=== PATIENT | female | born 2000 | race Caucasian/White ===

== ENCOUNTER → 2020-09-10 15:25 | Outpatient (CLI) | payer BC, SELFPAY ==
[2020-09-10 16:02] LABS: Basophils # 0.1 K/mm3 (0-0.2); Basophils % 0.8 % (0.1-2.0); Eosinophils # 0.4 K/mm3 (0.0-0.4); Eosinophils % 4.6 % (0.1-12.0); Hematocrit 43.9 % (37.0-47.0); Lymphocytes # 2.1 K/mm3 (0.7-4.5); Lymphocytes % 24.2 % (10-50); Mean Corpuscular HGB Conc 34.1 g/dL (31.8-35.4); Mean Corpuscular Hemoglobin 29.9 pg (27.0-31.2); Mean Corpuscular Volume 87.7 fl (81-99); Mean Platelet Volume 9.1 fl (7.4-10.4); Monocytes # 0.5 K/mm3 (0.1-1.0); Monocytes % 5.8 % (1.7-9.3); Neutrophils # 5.6 K/mm3 (1.8-7.8); Neutrophils % 64.6 % (37.0-80.0); Platelet Count 299 K/mm3 (142-424); Red Blood Count 5.01 M/mm3 (4.20-5.40); Red Cell Distribution Width 12.9 % (11.5-17.5); White Blood Count 8.6 K/mm3 (4.8-10.8)
[2020-09-10 16:46] LABS: Alanine Aminotransferase 30 U/L (12-78); Albumin Level 4.4 g/dl (3.5-5.0); Albumin/Globulin Ratio 1.5 (1.1-1.8); Alkaline Phosphatase 78 U/L (38-126); Anion Gap 13.5 mEq/L (5-15); Aspartate Amino Transferase 33 U/L (14-36); Bilirubin,Total 0.7 mg/dl (0.2-1.3); Blood Urea Nitrogen 16 mg/dl (7-17); Calcium 9.2 mg/dl (8.4-10.2); Carbon Dioxide 25 mmol/L (22.0-30.0); Chloride 104 mmol/L (98-107); Chol/HDL Ratio 3.3 (1-3.5); Cholesterol 147 mg/dl (140-200); Estimated Glomerular Filt Rate 106 ml/min (>60); GFR (African American) 128 ML/MIN (>60); Globulin 2.9 g/dL (1.3-3.2); Glucose 82 mg/dl (74-100); HDL Cholesterol 45 mg/dl (40-60); Potassium 4.5 mmoL/L (3.5-5.1); Sodium 138 mmol/L (136-145); Total Protein,Serum 7.3 g/dl (6.3-8.2); Triglycerides 98 mg/dl (30-150); VLDL Cholesterol 20 mg/dL (0-40)
[2020-09-10 16:57] LABS: Direct LDL Cholesterol 78.83 mg/dL (100-129)
[2020-09-10 17:03] LABS: 25-OH Vitamin D, Total 26.6 ng/mL (30-100)
[2020-09-10 17:04] LABS: T4 (Thyroxine) 9.8 ug/dl (5.53-11.0)
[2020-09-14 15:19] LABS: Thyroid Peroxidase Antibodies <9 IU/mL (0-34)
[2020-09-17 06:05] LABS: Thyroid Stimulating Immunoglob <0.10 IU/L (0.00-0.55)
== END ==
PROVIDERS: Visit Provider Physician Assistant
DX: N39.0 Urinary tract infection, site not specified (principal); R53.83 Other fatigue; R63.5 Abnormal weight gain; E55.9 Vitamin D deficiency, unspecified
CPT/HCPCS: 80053; 80061; 82306; 84436; 84443; 84445; 85025; 86376; 87086

== ENCOUNTER 2020-12-30 15:53 | Emergency (ER) | payer BC, SELFPAY ==
[2020-12-30 16:40] VITALS: BP 118/71; PULSE 82; RESP 18; TEMP 37; O2SAT 99; BMI 33.6
--- NOTE | 2020-12-30 16:44 | HMH.EDUTC ---
[facility] [place] Disposition Clinical Impression: Otitis media Qualifiers: Otitis media type: unspecified Laterality: left Qualified Code(s): H66.92 - Otitis media, unspecified, left ear Disposition: Home, Self-Care Condition on Discharge: Good Instructions: Middle Ear Infection, Fluticasone Nasal [place], Amoxicillin Additional Instructions: *Monitor Temp, Over the counter Motrin or Tylenol as directed/as needed Tylenol every 4 hours and Motrin every 6 hours (as long as your family doctor has told you that you can take it) for fever or pain. and straight to ER if unable to lower temp less than 101.0 after medication given *Warm salt water gargles may help to soothe the throat *Throat Lozenges *Warm fluids like tea with honey may help to soothe the throat *Sleep elevated *Humidifier/Vaporizer *Flonase 2 sprays in each nostril daily but be aware that it may take 2-3 days before you notice improvement Follow up IMMEDIATELY for new or worsening symptoms or no Noticeable improvement over the next 48-72 hours. 911 for difficulty breathing or swallowing Prescriptions: Amoxicillin [Amoxicillin 500mg Cap] 500 mg PO TID #30 cap Transmission Status: Pending to [id number] Fluticasone Propionate [Flonase 50mcg nasal spray 16gm] 1 spr NS DAILY #1 bottle Transmission Status: Pending to [id number] Referrals: PCP,No [Primary Care Provider] - As needed Time of Disposition: 16:51 Medical Decision Making - Shaheed Inquiry Pt receiving controlled substance: No Shaheed was queried for this patient: No Vital Signs: 12/30/20 16:40 Temperature 98.6 F Temperature Source Oral Pulse Rate [Right Radial] 82 Respiratory Rate 18 Blood Pressure [Right Arm] 118/71 Blood Pressure Mean [Right Arm] 86 Blood Pressure Source [Right Arm] Automatic Cuff Blood Pressure Position [Right Arm] Sitting 02 Sat by Pulse Oximetry 99 Oxygen Delivery Method Room Air [facility] [place] HPI - General Stated complaint: Left ear pain Time Seen by Provider: 12/30/20 16:44 Mode of Arrival: Ambulatory Source of Information: Patient Limitations: No Limitations Description of Symptoms (Recalled from Triage Doc. by RN): Pt c/o L ear pain x2 days. Pt reports sounds are bothering her, reports drainage down the back of her throat. Pt reports h/a on the L side of her head. HEENT Symptoms (Recalled from RN notes): Yes (pt c/o L ear pain) Resp Symptoms (Recalled from RN notes): No Skin Symptoms (Recalled from RN notes): No MS Symptoms (Recalled from RN notes): No Functional Status (Recalled from RN notes): n/a - History of Present Illness Provider Complaint: Patient state that she has been having pressure like feeling in her left ear for about a week and for the last couple of days she has been having pain in her left ear like she has an ear infection State that she has also been having some nasal congestion and drainage in the back of her throat and some pressure in her sinuses States that she has been taking over the counter DayQuil States that it has helped a little with her scratchy throat but ear has continued to get worse - Related Data Previous Rx's Medication Instructions Recorded ciprofloxacin HCl 500 mg tablet 500 mg PO BID 5 Days #10 tab 09/10/20 ergocalciferol (vitamin D2) 1,250 1,250 mcg PO WEEKLY #4 cap 09/11/20 mcg (50,000 unit) capsule Amoxicillin [Amoxicillin 500mg 500 mg PO TID #30 cap 12/30/20 Cap] Fluticasone Propionate [Flonase 1 spr NS DAILY #1 bottle 12/30/20 50mcg nasal spray 16gm] Allergies Allergy/AdvReac Type Severity Reaction Status Date / Time No Known Allergies Allergy Verified 09/10/20 11:27 - Worker's Comp Is this a Worker's Comp case?: No [facility] History - Hepatitis A Screen Drug use history?: No High risk sexual behaviors?: No History of sexually transmitted infection?: No Currently employed?: No Childcare worker?: No Do you have indoor plumbing?: Yes Do you have electricity?: Yes Attestation state
[2020-12-30 17:03] VITALS: BP 118/71; PULSE 82; RESP 18; TEMP 37; O2SAT 99
== END 2020-12-30 17:03 | disposition home or self-care (01) ==
PROVIDERS: Emergency Provider Nurse Practitioner
DX: H66.92 Otitis media, unspecified, left ear (principal)
CPT/HCPCS: 99202; G0463

== ENCOUNTER 2021-05-01 10:16 | Emergency (ER) | payer BC, SELFPAY ==
[2021-05-01 10:35] VITALS: BP 123/88; PULSE 83; RESP 20; TEMP 36.4; O2SAT 96; BMI 32.8
--- NOTE | 2021-05-01 10:52 | HMH.EDUTC ---
[facility] [place] Clinical Impression: Otitis media Qualifiers: Otitis media type: unspecified Laterality: left Qualified Code(s): H66.92 - Otitis media, unspecified, left ear Disposition: Home, Self-Care Condition on Discharge: Good Instructions: Middle Ear Infection, Amoxicillin Additional Instructions: Take medication as prescribed Over the counter Motrin and/or Tylenol as directed on package for pain and fever Return if needed Straight to ER if any life threatening symptoms Prescriptions: Amoxicillin [Amoxicillin 500mg Cap] 500 mg PO TID #30 cap Transmission Status: Pending to [facility] #[id number] Referrals: Provider,Referral, [Primary Care Provider] - As needed Time of Disposition: 10:58 Medical Decision Making - Shaheed Inquiry Pt receiving controlled substance: No Shaheed was queried for this patient: No Vital Signs: 05/01/21 10:35 Temperature 97.6 F Temperature Source Oral Pulse Rate [Right] 83 Respiratory Rate 20 Blood Pressure [Right Arm] 123/88 Blood Pressure Mean [Right Arm] 99 02 Sat by Pulse Oximetry 96 [facility] [place] - General Stated complaint: Lt ear pain Time Seen by Provider: 05/01/21 10:52 Mode of Arrival: Ambulatory Source of Information: Patient Limitations: No Limitations Description of Symptoms (Recalled from Triage Doc. by RN): pt c/o of a L ear ache and AKERS HEENT Symptoms (Recalled from RN notes): Yes (L ear ache and AKERS) Resp Symptoms (Recalled from RN notes): No Skin Symptoms (Recalled from RN notes): No MS Symptoms (Recalled from RN notes): No Functional Status (Recalled from RN notes): na - History of Present Illness Provider Complaint: Patient states that he has been having pain in her left ear for over a week States that it has continued to get worse and makes the side of her head hurt State that today she was hurting worse so she came in to get it checked - Related Data Previous Rx's Medication Instructions Recorded ciprofloxacin HCl 500 mg tablet 500 mg PO BID 5 Days #10 tab 09/10/20 Amoxicillin [Amoxicillin 500mg 500 mg PO TID #30 cap 12/30/20 Cap] Fluticasone Propionate [Flonase 1 spr NS DAILY #1 bottle 12/30/20 50mcg nasal spray 16gm] ergocalciferol (vitamin D2) 1,250 See Rx Instructions .ROUTE 01/02/21 mcg (50,000 unit) capsule .COMPLEX #4 cap Amoxicillin [Amoxicillin 500mg 500 mg PO TID #30 cap 05/01/21 Cap] Allergies Allergy/AdvReac Type Severity Reaction Status Date / Time No Known Allergies Allergy Verified 09/10/20 11:27 - Worker's Comp Is this a Worker's Comp case?: No H History - Hepatitis A Screen Drug use history?: No High risk sexual behaviors?: No History of sexually transmitted infection?: No Currently employed?: No Childcare worker?: No Do you have indoor plumbing?: Yes Do you have electricity?: Yes Attestation statement:: This patient has been screened for Hepatitis A risk factors. I have reviewed the patient's past medical history: Yes - Social History Smoking Status: Never smoker Alcohol Intake: never Substance Use Type: denies use Occupational Status: other ROS Obtained: Yes All systems reviewed & no additional complaints, Yes Systems reviewed as appropriate & no additional complaints - Constitutional Constitutional: Reports system reviewed and no additional complaints, except as docu, Reports headache(s) - ENT Ears, Nose, Mouth, and Throat: Reports system reviewed and no additional complaints, except as docu, Reports otalgia - Cardiovascular Cardiovascular: Reports system reviewed and no additional complaints, except as docu - Respiratory Respiratory: Reports system reviewed and no additional complaints, except as docu - Gastrointestinal Gastrointestingal: Reports: system reviewed and no additional complaints, except as docu Physical Exam - General General appearance: alert, in no apparent distress - Expanded ENT Exam TM/Canal exam: Left TM: erythema, bulging - Respiratory
[2021-05-01 11:28] VITALS: BP 127/89; PULSE 84; RESP 18; TEMP 36.6
== END 2021-05-01 11:28 | disposition home or self-care (01) ==
PROVIDERS: Emergency Provider Nurse Practitioner
DX: H66.92 Otitis media, unspecified, left ear (principal)
CPT/HCPCS: 99202; G0463

== ENCOUNTER 2021-10-21 11:07 | Emergency (ER) | payer BC, SELFPAY ==
[2021-10-21 12:49] VITALS: BP 143/93; PULSE 87; RESP 16; TEMP 36.9; O2SAT 100; BMI 30.6
--- NOTE | 2021-10-21 14:05 | HMH.EDUTC ---
[facility] [place] Disposition Clinical Impression: Cellulitis of great toe, right Disposition: Home, Self-Care Condition on Discharge: Good Instructions: Cellulitis Additional Instructions: Rest the extremity, Elevate the extremity as tolerated while you are resting. Take ibuprofen for pain. I sent in a prescription to your pharmacy. Follow up with your regular doctor. Take the medications as directed. Follow up with your regular doctor. GO TO THE ER FOR ANY WORSENING SYMPTOMS Follow up with Dr. Carnes. I put in a referral but you will need to call her office to schedule an appointment. Prescriptions: Ibuprofen [Ibuprofen 600mg Tablet] 600 mg PO Q6HP PRN #30 tab PRN Reason: Mild Pain Transmission Status: [id number] Amoxicillin/Potassium Clav [Augmentin 875-125 Tablet] 1 tab PO Q12H 10 Days #20 tab Transmission Status: [id number] Mupirocin [Bactroban 2% Ointment 22gm tube] 1 applicatio TP TID 7 Days #1 gm Transmission Status: [id number] Referrals: Provider,Referral, [Primary Care Provider] - Forms: Work/School Release Time of Disposition: 14:28 Medical Decision Making - Medical Records Medical records reviewed: No: I reviewed the patient's medical records. - Shaheed Inquiry Pt receiving controlled substance: No Vital Signs: 10/21/21 12:49 10/21/21 14:35 Temperature 98.4 F 98.4 F Temperature Source Oral Pulse Rate 87 Pulse Rate [Left] 87 Respiratory Rate 16 16 Blood Pressure 143/93 H Blood Pressure [Right Arm] 143/93 H Blood Pressure Mean [Right Arm] 109 02 Sat by Pulse Oximetry 100 [facility] [place] HPI - General Stated complaint: rt ankle/big toe pain Time Seen by Provider: 10/21/21 14:05 Mode of Arrival: Ambulatory Source of Information: Patient Limitations: No Limitations Description of Symptoms (Recalled from Triage Doc. by RN): pt c/o R foot pain. pt believes it started as an ingrown toe nail. x2 wks HEENT Symptoms (Recalled from RN notes): No Resp Symptoms (Recalled from RN notes): No Skin Symptoms (Recalled from RN notes): No MS Symptoms (Recalled from RN notes): Yes Functional Status (Recalled from RN notes): wnl - History of Present Illness Provider Complaint: She states that for the past 1 week she has had pain and redness at the medial nail fold of her right foot. The redness has started to spread now and she is concerned it is infected. - Related Data Previous Rx's Medication Instructions Recorded ciprofloxacin HCl 500 mg tablet 500 mg PO BID 5 Days #10 tab 09/10/20 Amoxicillin [Amoxicillin 500mg 500 mg PO TID #30 cap 12/30/20 Cap] Fluticasone Propionate [Flonase 1 spr NS DAILY #1 bottle 12/30/20 50mcg nasal spray 16gm] ergocalciferol (vitamin D2) 1,250 See Rx Instructions .ROUTE 01/02/21 mcg (50,000 unit) capsule .COMPLEX #4 cap Amoxicillin [Amoxicillin 500mg 500 mg PO TID #30 cap 05/01/21 Cap] Amoxicillin/Potassium Clav 1 tab PO Q12H 10 Days #20 tab 10/21/21 [Augmentin 875-125 Tablet] Ibuprofen [Ibuprofen 600mg 600 mg PO Q6HP PRN #30 tab 10/21/21 Tablet] Mupirocin [Bactroban 2% Ointment 1 applicatio TP TID 7 Days #1 gm 10/21/21 22gm tube] Allergies Allergy/AdvReac Type Severity Reaction Status Date / Time No Known Allergies Allergy Verified 09/10/20 11:27 - Worker's Comp Is this a Worker's Comp case?: No [facility] History - Hepatitis A Screen Drug use history?: No High risk sexual behaviors?: No History of sexually transmitted infection?: No Currently employed?: No Childcare worker?: No Do you have indoor plumbing?: Yes Do you have electricity?: Yes Attestation statement:: This patient has been screened for Hepatitis A risk factors. I have reviewed the patient's past medical history: Yes - Social History Smoking Status: Never smoker Alcohol Intake: never Substance Use Type: denies use Occupational Status: other ROS Obtained: Yes All s
[2021-10-21 14:35] VITALS: BP 143/93; PULSE 87; RESP 16; TEMP 36.9
== END 2021-10-21 14:37 | disposition home or self-care (01) ==
PROVIDERS: Emergency Provider Nurse Practitioner Family
DX: L03.031 Cellulitis of right toe (principal)
CPT/HCPCS: 99202; G0463

== ENCOUNTER → 2022-09-29 17:11 | Outpatient (CLI) | payer OTHER, SELFPAY ==
[2022-09-29 17:41] LABS: Basophils # 0.1 K/mm3 (0-0.2); Basophils % 1.3 % (0.1-2.0); Eosinophils # 0.4 K/mm3 (0.0-0.4); Eosinophils % 4.4 % (0.1-12.0); Hematocrit 40.9 % (37.0-47.0); Hemoglobin 14.1 g/dL (12.2-16.2); Lymphocytes # 2.4 K/mm3 (0.7-4.5); Lymphocytes % 28.6 % (10-50); Mean Corpuscular HGB Conc 34.5 g/dL (31.8-35.4); Mean Corpuscular Hemoglobin 29.8 pg (27.0-31.2); Mean Corpuscular Volume 86.5 fl (81-99); Mean Platelet Volume 8.4 fl (7.4-10.4); Monocytes # 0.4 K/mm3 (0.1-1.0); Monocytes % 4.4 % (1.7-9.3); Neutrophils # 5.2 K/mm3 (1.8-7.8); Neutrophils % 61.3 % (37.0-80.0); Platelet Count 312 K/mm3 (142-424); Red Blood Count 4.73 M/mm3 (4.20-5.40); Red Cell Distribution Width 12.9 % (11.5-17.5); White Blood Count 8.5 K/mm3 (4.8-10.8)
[2022-09-29 18:04] LABS: Chloride 103 mmol/L (98-107); Sodium 138 mmol/L (136-145)
[2022-09-29 18:05] LABS: Potassium 3.7 mmoL/L (3.5-5.1)
[2022-09-29 18:07] LABS: Alanine Aminotransferase 27 U/L (12-78); Alkaline Phosphatase 76 U/L (38-126); Aspartate Amino Transferase 32 U/L (14-36); Bilirubin,Total 0.6 mg/dl (0.2-1.3); Blood Urea Nitrogen 11 mg/dl (7-17); Estimated Glomerular Filt Rate 153 ml/min (>60); GFR (African American) 185 ML/MIN (>60)
[2022-09-29 18:08] LABS: Albumin Level 4.4 g/dl (3.5-5.0); Albumin/Globulin Ratio 1.5 (1.1-1.8); Anion Gap 10.7 mEq/L (5-15); Calcium 8.6 mg/dl (8.4-10.2); Carbon Dioxide 28 mmol/L (22.0-30.0); Globulin 2.9 g/dL (1.3-3.2); Glucose 91 mg/dl (74-100); Total Protein,Serum 7.3 g/dl (6.3-8.2)
[2022-09-29 18:25] LABS: T4 (Thyroxine) 8.8 ug/dl (5.53-11.0)
[2022-09-29 18:38] LABS: Thyroid Stimulating Hormone 3.04 uIU/mL (0.465-4.68)
== END ==
PROVIDERS: PCP Nurse Practitioner Family; Visit Provider Nurse Practitioner Family
DX: E55.9 Vitamin D deficiency, unspecified (principal); R53.83 Other fatigue; F41.9 Anxiety disorder, unspecified
CPT/HCPCS: 36415; 80053; 82306; 84436; 84443; 85025

== ENCOUNTER 2023-09-19 08:34 | Emergency (ER) | payer SELFPAY ==
[2023-09-19 08:50] VITALS: BP 115/73; PULSE 90; RESP 18; TEMP 36.7; O2SAT 96; BMI 33.6
[2023-09-19 09:06] LABS: UTC Influenza A Antigen Negative (Negative); UTC Influenza B Antigen Negative (Negative); UTC Strep Screen (Rapid) Negative (Negative)
--- NOTE | 2023-09-19 09:22 | EXP.UTC ---
Discharge Plan Disposition Patient Disposition: Home, Self-Care Condition: Good Prescriptions Prescriptions: New ondansetron 4 mg tablet,disintegrating 4 mg PO Q8H PRN (Reason: nausea and vomiting) Qty: 10 0RF meclizine 12.5 mg tablet 12.5 mg PO TID PRN (Reason: dizziness) Qty: 12 0RF No Action bupropion HCl 100 mg tablet sustained-release 12 hr See Rx Instructions .ROUTE .COMPLEX 90 Days Qty: 60 0RF Dose Instruction: TAKE 1 TABLET BY MOUTH TWICE A DAY Rx Instructions: TAKE 1 TABLET BY MOUTH TWICE A DAY Needs appt. for additional refills Referrals Follow up/Referrals: Provider,Referral, MD [Primary Care Provider] - See instructions Activity Restrictions/Add. Instructions Additional Instructions/Restrictions: *Monitor Temp, Over the counter Motrin or Tylenol as directed/as needed Tylenol every 4 hours and Motrin every 6 hours (as long as your family doctor has told you that you can take it) for fever or pain. and straight to ER if unable to lower temp less than 101.0 after medication given *Warm salt water gargles may help to soothe the throat *Throat Lozenges? *Warm fluids like tea with honey may help to soothe the throat? *Sleep elevated *Humidifier/Vaporizer *Your throat swab was sent for culture. Those results are typically sent to your primary care. Be sure to follow up in 2-3 days with your family doctor/primary care physician if no improvement so they can review those result and treat if necessary. If you don?t have a primary care doctor, I recommend you get one but in the mean time, you will have to return to a walk in clinic Follow up IMMEDIATELY for new or worsening symptoms or no Noticeable improvement over the next 48-72 hours. 911 for difficulty breathing or swallowing You were tested for today for Upper Respiratory Panel with COVID19 your test result should be back in the next 24hours, you may check your results on the [facility] Portal If your COVID test is positive you must Quarantine for 5 days Clinical Impressions Clinical Impression: Viral syndrome Stand Alone Forms Stand Alone Forms: Work/School Release Instructions Patient Instructions: DI for Nausea -- Adult, Ondansetron, Meclizine Discharge ED Provider: Yolis Grace [facility] [place] HPI General Stated complaint: cough, drainage,headache, nauseous Mode of Arrival: Ambulatory Source of Information: Patient Limitations: No Limitations Time Seen by Provider: 09/19/23 09:22 Description of Symptoms (Recalled from Triage Doc. by RN): cough, nausea, vomiting, AKERS, and dizziness HEENT Symptoms (Recalled from RN notes): Yes Resp Symptoms (Recalled from RN notes): No Skin Symptoms (Recalled from RN notes): No MS Symptoms (Recalled from RN notes): No Functional Status (Recalled from RN notes): n/a History of Present Illness Provider Complaint: Patient states that she was recent at [place] that since he got back she has been having bodyaches, chills, headache, N/V and dizziness on and off States that today she was still not feeling any better so she came in worried that she may have flu or COVID Related Data Previous Rx's Medication Instructions Recorded bupropion HCl 100 mg tablet,12 hr See Rx Instructions .Route 08/30/23 sustained-release .COMPLEX 90 days #60 ea meclizine 12.5 mg tablet 12.5 mg PO TID PRN dizziness #12 09/19/23 tabs ondansetron 4 mg disintegrating 4 mg PO Q8H PRN nausea and 09/19/23 tablet vomiting #10 tabs Allergies Allergy/AdvReac Type Severity Reaction Status Date / Time No Known Allergies Allergy Verified 09/19/23 08:58 Worker's Comp Is this a Worker's Comp case?: No [facility] Disclaimer: The information contained in this section may have been updated after the patient was seen, as this information can be updated by other users. Social History Smoking Status: Never smoker alcohol intake: never substance use type: denies u
[2023-09-19 09:43] LABS: UTC Pregnancy Test, Urine Negative (Negative)
[2023-09-19 09:55] VITALS: BP 115/73; PULSE 90; RESP 18; TEMP 36.7; O2SAT 96
== END 2023-09-19 09:53 | disposition home or self-care (01) ==
PROVIDERS: Emergency Provider Nurse Practitioner
DX: R51.9 Headache, unspecified (principal); R11.2 Nausea with vomiting, unspecified; R05.9 Cough, unspecified; R09.81 Nasal congestion; R07.0 Pain in throat; R42 Dizziness and giddiness; M79.18 Myalgia, other site; B34.9 Viral infection, unspecified
CPT/HCPCS: 81025; 87635; 87804; 87880; 99212; 99214; G0463